=== PATIENT | female | born 1975 | race Caucasian/White ===

== ENCOUNTER 2016-09-11 19:29 | Emergency (ER) | payer MEDICAID ==
[~2016-09-11] VITALS: Ht 182.9 cm; Wt 79.5 kg
[~2016-09-11 19:29] MED LIST: ASPIRIN 81M81 MG/TA2 PO; BACTRIM DS 8001 TAB PO; CLEOCIN75 MG/5 ML PO; CLINDAMYCIN300 MG PO; COREG 25MG25 MG/TAB PO; DIOVAN HCT 12.51 TA1 PO; FLAGYL500 MG PO; HCTZ 25MG25 MG PO; LISINOPRIL20 MG PO; LOPRESSOR 550 MG/TAB PO; LORTAB ELIX0.5 MG/ML PO; LOVENOX 3030 MG/0.3 SQ; MOTRIN 600600 MG/TAB PO; MUCINEX 60600 MG/TA1 PO; NO HOME MEDICATIONS; NORTREL 35 MCG-1 TA1 PO; NORTREL 35 MCG-1 TAB PO; PERCOCET 325 MG1 TA2 PO; PRENATAL1 TA7 PO; PRINZIDE 12.5 M1 TA1 PO; VASOTEC 10M10 MG/TAB PO; VICODIN 5/5001 UDTAB PO
[2016-09-11 19:31] VITALS: TEMP 98.3
[2016-09-11 20:21] LABS: BASO % 0.4 % (0.0-2.0); EOS # 0.2 (0.0-0.7); EOS % 2.3 % (0-4.0); GRAN # 3.8 (1.4-6.5); GRAN % 55.5 % (42.2-75.2); HEMATOCRIT 39.4 % (37.0-47.0); HEMOGLOBIN 13.4 g/dl (12.5-16.0); LYMPH # 2.2 (1.2-3.4); LYMPH % 31.4 % (20.0-51.0); MEAN CELL VOLUME 88 fl (80.0-100.0); MEAN CORPUSCULAR HEMOGLOBIN 30 pg (27.0-31.0); MEAN CORPUSCULAR HGB CONC 34 g/dl (33.0-37.0); MEAN PLATELET VOLUME 9.4 fl (7.4-10.4); MONO # 0.7 (0.1-0.6); MONO % 10.3 % (1.7-9.3); PLATELET COUNT 203 K/mm3 (130-400); RED BLOOD COUNT 4.47 M/mm3 (4.10-5.30); REDCELL DISTRIBUTION WIDTH-CV 12.9 % (11.5-14.5); WHITE BLOOD COUNT 6.9 K/mm3 (4.8-10.8)
[2016-09-11 20:37] LABS: C-REACTIVE PROTEIN 1.1 mg/dL (0.0-0.9); CALCIUM 9.6 mg/dL (8.4-10.2); CREATININE, serum 0.99 mg/dL (0.52-1.25); POTASSIUM 3.3 mmol/L (3.4-5.0)
[2016-09-11 20:40] LABS: ERYTHROCYTE SEDIMENTATION RATE 2 mm/hr (0-20)
[2016-09-11 21:42] VITALS: BP 131/85; PULSE 48
== END 2016-09-11 21:57 | disposition home or self-care (01) ==
LOC: COL.ER 19:29
PROVIDERS: Emergency Medicine
DX: R55 Syncope and collapse (principal); I10 Essential (primary) hypertension; F17.210 Nicotine dependence, cigarettes, uncomplicated
CPT/HCPCS: J7030

== ENCOUNTER → 2016-12-08 | Outpatient (CLI) | payer MEDICAID ==
[~2016-12-08] MED LIST changes: +HCTZ12.5TAB PO; +MASON NATURAL1200 MG PO; +MOTRIN 800800 MG/TAB PO; +PRENATAL MVI PO; +PRINIVIL40 MG PO
== END ==
LOC: MC.RAD 08:31
DX: Z12.31 Encounter for screening mammogram for malignant neoplasm of breast (principal); N64.89 Other specified disorders of breast

== ENCOUNTER → 2016-12-22 | Outpatient (CLI) | payer MEDICAID | LOC: MC.RAD 08:29 | DX: Z12.39 Encounter for other screening for malignant neoplasm of breast (principal) ==

== ENCOUNTER 2017-02-19 11:03 | Day surgery (SDC) | payer MEDICAID ==
[2017-02-19] VITALS (9 sets, daily range): BP systolic 140–173; BP diastolic 78–96; PULSE 45–65; TEMP 97.7–98.7
[~2017-02-19] VITALS: Ht 182.9 cm; Wt 74.7 kg
[~2017-02-19 11:03] MED LIST changes: -HCTZ12.5TAB PO; -MASON NATURAL1200 MG PO; -MOTRIN 800800 MG/TAB PO; -PRENATAL MVI PO; -PRINIVIL40 MG PO
[2017-02-19] MEDS ORDERED: COREG 25MG25 MG/TAB PO (12:14)
[2017-02-19] MEDS ORDERED: PRINIVIL40 MG PO (12:15)
[2017-02-19] MEDS ORDERED: HCTZ12.5TAB PO (12:15)
[2017-02-19] MEDS ORDERED: PRENATAL MVI PO (12:16)
[2017-02-19] MEDS ORDERED: ASPIRIN 81M81 MG/TA2 PO (12:16)
[2017-02-19] MEDS ORDERED: MASON NATURAL1200 MG PO (12:17)
[2017-02-19] MEDS ORDERED: PERCOCET 325 MG1 TA2 PO (12:21)
[2017-02-19] MEDS ORDERED: MOTRIN 800800 MG/TAB PO (12:21)
[2017-02-20 02:40] VITALS: BP 141/82; PULSE 53; TEMP 98.2
== END 2017-02-20 06:15 | disposition home or self-care (01) ==
LOC: SDCO 11:03
DX: N95.0 Postmenopausal bleeding (principal); N81.9 Female genital prolapse, unspecified; N80.0 Endometriosis of uterus; D06.9 Carcinoma in situ of cervix, unspecified; Z87.891 Personal history of nicotine dependence; I10 Essential (primary) hypertension; Z86.73 Personal history of transient ischemic attack (TIA), and cerebral infarction without residual deficits
CPT/HCPCS: A4315; J0690; J1100; J1885; J2270; J2405; J2704; J2710; J3010; J7120

== ENCOUNTER 2017-10-13 10:09 | Emergency (ER) | payer MEDICAID ==
[~2017-10-13] VITALS: Ht 182.9 cm; Wt 77.3 kg
[~2017-10-13 10:09] MED LIST changes: +HCTZ12.5TAB PO; +MASON NATURAL1200 MG PO; +MOTRIN 800800 MG/TAB PO; +PRENATAL MVI PO; +PRINIVIL40 MG PO
[2017-10-13 10:14] VITALS: TEMP 98.1
[2017-10-13 10:39] VITALS: BP 144/98; PULSE 51
[2017-10-13] MEDS ORDERED: HAIRSKINNAILS PO (10:40)
[2017-10-13] MEDS ORDERED: COREG 25MG25 MG/TAB PO (10:40)
[2017-10-13] MEDS ORDERED: NORCO 325 MG-51 TAB PO (10:43)
[2017-10-13] MEDS ORDERED: CLEOCIN HCL300 MG PO (10:43)
[2017-10-13] MEDS ORDERED: ZESTRIL40 MG PO (10:44)
[2017-10-13] MEDS ORDERED: ASPIRIN 81M81 MG/TA2 PO (10:44)
[2017-10-13] MEDS ORDERED: HCTZ12.5TAB PO (10:45)
== END 2017-10-13 10:56 | disposition home or self-care (01) ==
LOC: COL.ER 10:09
DX: K02.9 Dental caries, unspecified (principal); I10 Essential (primary) hypertension; Z87.891 Personal history of nicotine dependence; Z88.0 Allergy status to penicillin; Z79.82 Long term (current) use of aspirin

== ENCOUNTER → 2018-11-06 | Outpatient (CLI) | payer OTHER ==
[~2018-11-06] MED LIST changes: +CLEOCIN HCL300 MG PO; +HAIRSKINNAILS PO; +NORCO 325 MG-51 TAB PO; +ZESTRIL40 MG PO
== END ==
LOC: MC.RAD 10:22
DX: Z12.31 Encounter for screening mammogram for malignant neoplasm of breast (principal)

== ENCOUNTER 2020-08-04 18:34 | Emergency (ER) | payer BC ==
[~2020-08-04] VITALS: Ht 177.8 cm; Wt 81.8 kg
[2020-08-04 19:01] VITALS: BP 172/96; TEMP 98.4
[2020-08-04 21:59] VITALS: PULSE 61
== END 2020-08-04 21:59 | disposition home or self-care (01) ==
LOC: COL.ER 18:34
DX: S60.222A Contusion of left hand, initial encounter (principal); I10 Essential (primary) hypertension; Z88.0 Allergy status to penicillin; Z87.891 Personal history of nicotine dependence; Z79.82 Long term (current) use of aspirin; W10.9XXA Fall (on) (from) unspecified stairs and steps, initial encounter

== ENCOUNTER → 2020-11-08 | Outpatient (CLI) | payer BC | LOC: MC.RAD 07:00 | DX: Z12.31 Encounter for screening mammogram for malignant neoplasm of breast (principal) ==

== ENCOUNTER → 2021-11-28 | Outpatient (CLI) | payer BC | LOC: MC.RAD 07:56 | DX: Z12.31 Encounter for screening mammogram for malignant neoplasm of breast (principal); N64.89 Other specified disorders of breast ==

== ENCOUNTER → 2021-12-02 | Outpatient (CLI) | payer BC | LOC: MC.RAD 07:52 | DX: N64.89 Other specified disorders of breast (principal) ==

== ENCOUNTER → 2023-11-08 | Outpatient (CLI) | payer BC ==
[~2023-11-08] MED LIST changes: +CRESTOR5 MG PO; +EPA FISH OIL1 SGL PO; +NORVASC 5MG5 MG/TAB PO; +VALU-DRYL ALLER25 MG PO; +VENTOLIN0.09 MG IH; +ZOLOFT 25MG25 MG PO
== END ==
LOC: MC.RAD 15:13
DX: Z12.31 Encounter for screening mammogram for malignant neoplasm of breast (principal)

== ENCOUNTER → 2024-04-10 | Outpatient (CLI) | payer BC | LOC: COL.RAD 07:32 | DX: S83.281A Other tear of lateral meniscus, current injury, right knee, initial encounter (principal) ==